=== PATIENT | female | born 1985 | race Caucasian/White ===

== ENCOUNTER 2021-03-24 14:53 | Observation (INO) ==
[2021-03-24] MEDS ORDERED: ACETAMINOPHEN 325 MG TAB PO STA (17:07)
--- NOTE | 2021-03-24 17:09 | Emergency Department Note ---
History of Present Illness General Chief complaint: Head Injury, Minor Stated complaint: HEAD INJURY,MEDINA WENT ON HEAD(BACK) SYNCOPE,VOMIT Time Seen by Provider: 03/24/21 16:54 History of Present Illness Maximum Pain Intensity: 5 This is a 36-year-old female that presents to the emergency department via ambulance with complaints of "head injury, struck on back of head, syncope, vomiting". The patient notes that earlier today she was helping her unload a vehicle with items at [facility]. Patient states that her not realize that she was still unloading items and went to close the back shell of their vehicle. When he shut the door her head was underneath this and was struck by the door. She was knocked to the ground. She does not believe that she lost consciousness but notes that about 15 minutes after began vomiting. She vomited x2. She notes that when she was struck her vision became black and story like. She then notes that she had a syncopal event x2. No biting the tongue or bowel/bladder incontinence. She does have photophobia. She denies any chest pain or shortness of breath. No neck pain. She denies any pertinent past medical history, surgeries or allergies. Patient notes that she is from [place] and was driving her here to [facility]. Home Medications Medication Instructions Recorded Confirmed Type etonogestrel 68 mg subdermal 68 mg SUBDERMAL UD 03/24/21 03/24/21 History implant (Nexplanon) trazodone 50 mg tablet 50 mg PO HS 03/24/21 03/24/21 History Allergies Allergy/AdvReac Type Severity Reaction Status Date / Time No Known Allergies Allergy Unverified 03/24/21 20:30 Past Med/Surg History Medical History CTS (carpal tunnel syndrome) Surgical History H/O wisdom tooth extraction Social History Smoking Status: Never smoker Second Hand Exposure: No; Do You Dip or Chew Tobacco: No; Tobacco Cessation Education Requested by Patient: No Hx Alcohol Use: Yes Alcohol type: beer, wine and hard liquor Hx Substance Use: Yes Substance Use Type Other:: about once every 6 months Preferred Language: Brazilian Communication Ability: Effective Tools Developer Required: No Beliefs That Will Affect Care: None Current Living Situation: Spouse Current Living Situation Comment: lives with spouse Sanju but he is currently in rehab current occupational status: employed 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 Other Information That Helps Us Care for You: No Feels Safe at Home: Yes Safety Concerns: Feels Safe At This Time Assistive Devices: None Review of Systems A total of 10 systems reviewed and were otherwise negative Physical Exam Vital Signs Vital Signs - 24 hr 03/24/21 15:14 03/24/21 19:12 03/24/21 20:37 Temperature 35.9 C L 36.6 C Temperature Source Temporal Artery Scan Oral Pulse Rate 90 Pulse Rate [Finger] 56 L 65 Respiratory Rate 18 Respiratory Effort / Characteristics Non-Labored Respiratory Depth Normal Respiratory Pattern Regular Blood Pressure 113/79 Blood Pressure [Right Arm] 115/95 106/72 Blood Pressure Mean 90 Blood Pressure Mean [Right Arm] 101 83 Blood Pressure Position [Right Arm] Sitting Pulse Oximetry 100 100 99 Oxygen Delivery Method Room Air Room Air Room Air Sepsis Recent Fever Within 48 Hours No Sepsis New/Unexplained Change in Mental Status No Sepsis Action Taken by Nursing No Action Required VITAL SIGNS - Vital signs and nursing notes were reviewed. Stable and afebrile. GENERAL -36-year-old female appearing her stated age who is in no acute distress. Communicates well with provider and answers questions appropriately. SKIN - Without rashes. No meningeal or petechial rash. HEAD - NC/AT. EYES - PERRL with EOMI bilaterally. Sclera anicteric. EARS - No deformities of external structures noted on gross examination bilaterally. No pain elicited with palpation of the tragus bilaterally. External auditory canals without discharge or otorrhea. Tympanic membranes pearly oneal without retraction or bulging. No fluid or purulent material visualized behind the TM. Handle of malleus, umbo, cone of light, pars tensa/flaccid all easily visualized. No hemotympanum. NOSE - Midline and without cyanosis. No epistaxis or purulent drainage noted. Septum midline without deviation or septal hematoma noted. MOUTH/OROPHARYNX - Without perioral cyanosis. Buccal mucosa pink and moist and w ithout leukoplakia. Tongue midline with equal elevation of palate bilaterally. No tonsillar hypertrophy, erythema, or exudates noted. Good dentition noted. NECK - Neck with FROM. No C-spine tenderness. No nuchal rigidity. LUNGS - Chest wall symmetric without accessory muscle use, intercostals ret ractions, or central cyanosis. Normal vesicular breath sounds CTA B/L. No wheezes, rales, or rhonchi appreciated. CARDIAC - RRR with S1/S2. No murmur, rubs, or gallops appreciated. EXTREMITIES - No clubbing or peripheral cyanosis. +5/5 strength noted in UE/LE bilaterally. NEUROLOGIC - Cranial nerves II through XII grossly intact. Sensory intact to light touch throughout. PSYCH - A&Ox3 and cooperates fully with examiner. Pt is very pleasant and interacts well with examiner. Course Administered Medications Acetaminophen (Acetaminophen 325 Mg Tab) 650 mg PO Q4H PRN PRN Reason: Pain or Fever Stop: 04/23/21 23:54 Last Admin: 03/25/21 00:18 Dose: 650 mg Documented by: [id number] Discontinued Medications Acetaminophen (Acetaminophen 325 Mg Tab) 650 mg PO NOW STA Stop: 03/24/21 17:08 Last Admin: 03/24/21 17:27 Dose: 650 mg Documented by: [id number] Diphenhydramine HCl (Diphenhydramine 50 Mg/Ml Vial) 25 mg IV NOW STA Stop: 03/25/21 00:01 Last Admin: 03/25/21 00:18 Dose: 25 mg Documented by: [id number] Sodium Chloride (Nss 1000ml) 1,000 mls @ 999 mls/hr IV .Q1H1M KRISTIE Stop: 03/24/21 20:00 Last Infusion: 03/24/21 20:36 Dose: 0 mls/hr Documented by: [id number] Admin: 03/24/21 19:35 Dose: 999 mls/hr Documented by: [id number] Ibuprofen (Ibuprofen 600 Mg Tab) 600 mg PO NOW STA Stop: 03/24/21 18:42 Last Admin: 03/24/21 19:35 Dose: Not Given Documented by: [id number] Ketorolac Tromethamine (Ketorolac Tromethamine 15 Mg/Ml Vial) 15 mg IV NOW STA Stop: 03/24/21 18:58 Last Admin: 03/24/21 19:35 Dose: 15 mg Documented by: [id number] Ondansetron HCl (Ondansetron Inj 2 Mg/Ml 2 Ml Vial) 4 mg IV NOW STA Stop: 03/24/21 21:37 Last Admin: 03/24/21 22:49 Dose: 4 mg Documented by: [id number] Medical Decision Making Laboratory Data Result diagrams: 03/24/21 19:28 03/24/21 19:28 Lab Results 03/24/21 03/24/21 03/24/21 Range/Units 19:28 19:28 19:28 WBC 8.66 (4.8-10.8) K/uL RBC 4.65 (4.2-5.4) M/uL Hgb 14.5 (12.0-16.0) g/dL Hct 42.8 (37-47) % MCV 92.0 (80-100) fL MCH 31.2 (25-34) pg MCHC 33.9 (32-36) g/dL RDW Std Deviation 40.3 (36.4-46.3) fL RDW Coeff of Glenn 12.0 (11.5-14.5) % Plt Count 279 (130-400) K/uL MPV 9.3 (7.4-10.4) fL Immature Gran % (Auto) 0.2 % Neut % (Auto) 46.6 % Lymph % (Auto) 41.0 % [place]icking % (Auto) 6.9 % Eos % (Auto) 5.1 % Baso % (Auto) 0.2 % Neut # (Auto) 4.03 (1.4-6.5) K/uL Lymph # (Auto) 3.55 H (1.2-3.4) K/uL [place]icking # (Auto) 0.60 H (0.11-0.59) K/uL Eos # (Auto) 0.44 (0-0.5) K/uL Baso # (Auto) 0.02 (0-0.2) K/uL Immature Gran # (Auto) 0.02 (0.00-0.02) K/uL Sodium 139 (136-145) mmol/L Potassium 3.9 (3.5-5.1) mmol/L Chloride 108 H (98-107) mmol/L Carbon Dioxide 27 (21-32) mmol/L Anion Gap 3.0 (3-11) BUN 8 (7-18) mg/dl Creatinine 0.75 (0.6-1.2) mg/dl Est Cr Clr Drug Dosing Not Reportable Est GFR ( Amer) 120.5 ml/min Est GFR (Non-Af Amer) 104.0 ml/min BUN/Creatinine Ratio 10.2 (10-20) Glucose 90 (70-99) mg/dl Calcium 8.9 (8.5-10.1) mg/dl Total Bilirubin 0.4 (0.2-1) mg/dl AST 12 L (15-37) U/L ALT 13 (12-78) U/L Alkaline Phosphatase 56 (45-117) U/L Total Protein 7.9 (6.4-8.2) gm/dl Albumin 4.2 (3.4-5.0) gm/dl Globulin 3.7 (2.5-4.0) gm/dl Albumin/Globulin Ratio 1.1 (0.9-2) HCG, Qual Negative (Negative) COVID-19 Eval Order SARS-CoV-2 (PCR) (Negative) 03/24/21 03/24/21 Range/Units 20:33 20:33 WBC (4.8-10.8) K/uL RBC (4.2-5.4) M/uL Hgb (12.0-16.0) g/dL Hct (37-47) % MCV (80-100) fL MCH (25-34) pg MCHC (32-36) g/dL RDW Std Deviation (36.4-46.3) fL RDW Coeff of Glenn (11.5-14.5) % Plt Count (130-400) K/uL MPV (7.4-10.4) fL Immature Gran % (Auto) % Neut % (Auto) % Lymph % (Auto) % Licking % (Auto) % Eos % (Auto) % Baso % (Auto) % Neut # (Auto) (1.4-6.5) K/uL Lymph # (Auto) (1.2-3.4) K/uL Licking # (Auto) (0.11-0.59) K/uL Eos # (Auto) (0-0.5) K/uL Baso # (Auto) (0-0.2) K/uL Immature Gran # (Auto) (0.00-0.02) K/uL Sodium (136-145) mmol/L Potassium (3.5-5.1) mmol/L Chloride (98-107) mmol/L Carbon Dioxide (21-32) mmol/L Anion Gap (3-11) BUN (7-18) mg/dl Creatinine (0.6-1.2) mg/dl Est Cr Clr Drug Dosing Est GFR ( Amer) ml/min Est GFR (Non-Af Amer) ml/min BUN/Creatinine Ratio (10-20) Glucose (70-99) mg/dl Calcium (8.5-10.1) mg/dl Total Bilirubin (0.2-1) mg/dl AST (15-37) U/L ALT (12-78) U/L Alkaline Phosphatase (45-117) U/L Total Protein (6.4-8.2) gm/dl Albumin (3.4-5.0) gm/dl Globulin (2.5-4.0) gm/dl Albumin/Globulin Ratio (0.9-2) HCG, Qual (Negative) COVID-19 Eval Order Covid19 at [facility] SARS-CoV-2 (PCR) NEGATIVE (Negative) Imaging Data Radiologist's Impression: Cervical Spine CT 03/24/21 17:06 CT SCAN OF THE CERVICAL SPINE CLINICAL HISTORY: Possible syncope. Head injury. COMPARISON STUDY: No priors. TECHNIQUE: CT scan of the cervical spine is performed from the skull base to the upper thoracic spine. Images are reviewed in the axial, sagittal, and coronal planes. IV contrast was not administered for this examination. A dose lowering technique was utilized adhering to the principles of ALARA. CT DOSE: 841.04 mGy.cm FINDINGS: Skeletal structures: The skeletal structures are well mineralized. There is no evidence of fracture or subluxation involving the cervical spine. Vertebral body height and alignment are maintained. There is straightening of the cervical lordosis. The odontoid process and lateral masses are intact. The atlantoaxial articulation is preserved. The spinous processes appear intact. Intervertebral discs: The disc spaces are well maintained. Central canal: Widely patent. Soft tissues: The prevertebral and paraspinous soft tissues are within normal limits. The 7 mm low-attenuation nodule is noted in the left lobe of the thyroid gland. Calvarium: The visualized calvarium at the skull base appears intact. Brain parenchyma: Partially visualized brain parenchyma at the skull base is within normal limits. Sinuses and mastoids: The visualized paranasal sinuses are clear. The mastoid air cells are well pneumatized. Lung apices: Clear as visualized. IMPRESSION: 1. There is no evidence of fracture or subluxation involving the cervical spine. 2. Left lobe thyroid nodule. Follow-up with a nonemergent thyroid ultrasound is recommended for further assessment. ACT 112: Negative or not required by law. Electronically signed by: Guanaco Stevens M.D. 03/24/2021 5:[address] 03/24/21 17:06 CT SCAN OF THE BRAIN WITHOUT IV CONTRAST CLINICAL HISTORY: Head injury. COMPARISON STUDY: No priors TECHNIQUE: Unenhanced axial CT scan of the brain is performed from the vertex to the skull base. A dose lowering technique was utilized adhering to the principles of ALARA. FINDINGS: Brain parenchyma: The brain parenchyma is normal in appearance. There is no hemorrhage, mass effect, or evidence of acute territorial ischemia by CT criteria. Oneal-white matter differentiation is preserved. No extra-axial fluid collection is seen. Ventricles, sulci, cisterns: Normal in configuration. Intracranial vasculature: The visualized intracranial vasculature at the skull base is normal in appearance. Calvarium: There is no depressed calvarial fracture. Sinuses and mastoids: The visualized paranasal sinuses are clear. The mastoid air cells are well pneumatized. Orbits: The bony orbits are grossly intact. IMPRESSION: No acute intracranial abnormality. ACT 112: Negative or not required by law. Electronically signed by: Guanaco Stevens M.D. 03/24/2021 5:43 PM MDM Narrative Patient was seen and evaluated as above in room A03. Review was performed of nursing notes and vital signs. No previous visits for review. After obtaining a thorough history and physical examination the above work up was performed. Patient presents to us today via EMS status post head injury. Although there was no reported initial loss of consciousness she did have vomiting following this and two periods of unresponsiveness/syncope. On arrival she is nontoxic on exam and yield stable vital signs. Clinically she is photophobic and is experiencing a headache. No deficits on exam. It is important to note that prior to the head injury the patient felt fine. Options of care were discussed with the patient. CT scan of the head and C- spine were obtained. Negative for traumatic process. I suspect concussion. Patient does have a thyroid nodule which will require follow-up. She was educated upon this. She is to call her PCP on Saturday to arrange follow-up. Patient had worsening of her headache despite p.o. acetaminophen. IV access was established. She was given IV fluids, IV Toradol. The patient at this time should not drive home noting her recent head injury and she lives in [place]. No family in the area at this current time. Options were discussed with the patient and through shared decision making at this time do believe that with her head injury in the setting of syncope/unresponsiveness x2 with associated vomiting that inpatient management is warranted. Case discussed with the hospitalist. Please refer to further documentation regarding her stay. Laboratory studies were obtained reveal no emergent process hCG negative. Covid negative. GCS: 15 In the evaluation and treatment of this patient, the following differential d iagnoses were considered: Concussion, Contrecoup Injury, Brain Tumor, Depression, Encephalitis, Hypothyroidism, Meningitis, CVA, TIA, Migraine, Cluster Headache, Intracranial Abnormality, Intracranial Hemorrhage, Subdural Hematoma, Subarachnoid Hemorrhage, Hydrocephalus, among others. Impression & Plan Concussion without loss of consciousness, Vomiting Discharge Plan Visit Data Chief Complaint: Head Injury, Minor Stated Complaint: HEAD INJURY,MEDINA WENT ON HEAD(BACK) SYNCOPE,VOMIT ED Provider: Alcides Judge ED Midlevel Provider: Deepak Worthington Discharge Problem: Concussion without loss of consciousness, Vomiting Patient Disposition: Admitted As Inpatient Condition: Good Discharge Instructions Interventions: ED Discharge Assessment Last Done: 03/24/21 23:25
--- NOTE | 2021-03-24 17:44 | CT Scan Report ---
CT SCAN OF THE BRAIN WITHOUT IV CONTRAST CLINICAL HISTORY: Head injury. COMPARISON STUDY: No priors TECHNIQUE: Unenhanced axial CT scan of the brain is performed from the vertex to the skull base. A d ose lowering technique was utilized adhering to the principles of ALARA. FINDINGS: Brain parenchyma: The brain parenchyma is normal in appearance. There is no hemorrhage, mass effect, or evidence of acute territorial ischemia by CT criteria. Oneal-white matter differentiation is preser sandhya. No extra-axial fluid collection is seen. Ventricles, sulci, cisterns: Normal in configuration. Intracranial vasculature: The visualized intracranial vasculature at the skull base is normal in appe arance. Calvarium: There is no depressed calvarial fracture. Sinuses and mastoids: The visualized paranasal sinuses are clear. The mastoid air cells are well pneu matized. Orbits: The bony orbits are grossly intact. IMPRESSION: No acute intracranial abnormality. ACT 112: Negative or not required by law. Electronically signed by: Guanaco Stevens M.D. 03/24/2021 5:43 PM
--- NOTE | 2021-03-24 17:49 | CT Scan Report ---
CT SCAN OF THE CERVICAL SPINE CLINICAL HISTORY: Possible syncope. Head injury. COMPARISON STUDY: No priors. TECHNIQUE: CT scan of the cervical spine is performed from the skull base to the upper thoracic spine . Images are reviewed in the axial, sagittal, and coronal planes. IV contrast was not administered fo r this examination. A dose lowering technique was utilized adhering to the principles of ALARA. CT DOSE: 841.04 mGy.cm FINDINGS: Skeletal structures: The skeletal structures are well mineralized. There is no evidence of fracture o r subluxation involving the cervical spine. Vertebral body height and alignment are maintained. There is straightening of the cervical lordosis. The odontoid process and lateral masses are intact. The a tlantoaxial articulation is preserved. The spinous processes appear intact. Intervertebral discs: The disc spaces are well maintained. Central canal: Widely patent. Soft tissues: The prevertebral and paraspinous soft tissues are within normal limits. The 7 mm low-at tenuation nodule is noted in the left lobe of the thyroid gland. Calvarium: The visualized calvarium at the skull base appears intact. Brain parenchyma: Partially visualized brain parenchyma at the skull base is within normal limits. Sinuses and mastoids: The visualized paranasal sinuses are clear. The mastoid air cells are well pneu matized. Lung apices: Clear as visualized. IMPRESSION: 1. There is no evidence of fracture or subluxation involving the cervical spine. 2. Left lobe thyroid nodule. Follow-up with a nonemergent thyroid ultrasound is recommended for [facility] assessment. ACT 112: Negative or not required by law. Electronically signed by: Guanaco Stevens M.D. 03/24/2021 5:48 PM
[2021-03-24] MEDS ORDERED: IBUPROFEN 600 MG TAB PO STA (18:41)
[2021-03-24] MEDS ORDERED: KETOROLAC TROMETHAMINE 15 MG/ML VIAL IV STA (18:57)
[2021-03-24] MEDS ORDERED: SODIUM CHLORIDE 0.9% 1000ML 1,000 ML IV SCH (19:00)
[2021-03-24 19:40] LABS: Basophils # (auto) 0.02 K/uL (0-0.2); Basophils % (auto) 0.2 %; Eosinophils # (auto) 0.44 K/uL (0-0.5); Eosinophils % (auto) 5.1 %; Hematocrit (blood only) 42.8 % (37-47); Hemoglobin 14.5 g/dL (12.0-16.0); Immature Granulocytes # (auto) 0.02 K/uL (0.00-0.02); Immature Granulocytes % (auto) 0.2 %; Lymphocytes # (auto) 3.55 K/uL (1.2-3.4); Mean Corpuscular Hemoglobin 31.2 pg (25-34); Mean Corpuscular Hgb Conc 33.9 g/dL (32-36); Mean Platelet Volume 9.3 fL (7.4-10.4); Monocytes % (auto) 6.9 %; Neutrophils # (auto) 4.03 K/uL (1.4-6.5); Neutrophils % (auto) 46.6 %; Platelet Count 279 K/uL (130-400); RDW Standard Deviation 40.3 fL (36.4-46.3); Red Blood Count 4.65 M/uL (4.2-5.4); White Blood Count 8.66 K/uL (4.8-10.8)
[2021-03-24 20:00] LABS: Alanine Aminotransferase 13 U/L (12-78); Albumin Level 4.2 gm/dl (3.4-5.0); Aspartate Aminotransferase 12 U/L (15-37); BUN Creatinine Ratio 10.2 (10-20); Blood Urea Nitrogen 8 mg/dl (7-18); Calcium 8.9 mg/dl (8.5-10.1); Carbon Dioxide 27 mmol/L (21-32); Chloride 108 mmol/L (98-107); Est GFR (African American) 120.5 ml/min; Glucose 90 mg/dl (70-99); Potassium 3.9 mmol/L (3.5-5.1); Sodium 139 mmol/L (136-145)
[2021-03-24 20:03] LABS: Albumin Globulin Ratio 1.1 (0.9-2); Alkaline Phosphatase 56 U/L (45-117); Bilirubin,Total 0.4 mg/dl (0.2-1); Globulin 3.7 gm/dl (2.5-4.0); Total Protein 7.9 gm/dl (6.4-8.2)
[2021-03-24 20:08] LABS: Pregnancy Test, Serum Negative (Negative)
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
[2021-03-24] MEDS ORDERED: ONDANSETRON INJ 2 MG/ML 2 ML VIAL IV STA (21:36)
[2021-03-24] MEDS ORDERED: ONDANSETRON INJ 2 MG/ML 2 ML VIAL IV PRN (23:55)
[2021-03-25] MEDS ORDERED: diphenhydrAMINE 50 MG/ML VIAL IV STA
[2021-03-25] MEDS: ACETAMINOPHEN 325 MG TAB PO PRN ×2 (00:18→09:22)
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
--- NOTE | 2021-03-25 21:23 | Billing Data ---
Date of Service March 25, 2021 Coding Level of Care Code INT OBSERVATION CARE 70M LVL 3
--- NOTE | 2021-03-26 06:56 | Electrocardiogram Report ---
Test Reason : Blood Pressure : / mmHG Vent. Rate : 059 BPM Atrial Rate : 059 BPM P-R Int : 158 ms QRS Dur : 086 ms QT Int : 406 ms P-R-T Axes : 020 085 072 degrees QTc Int : 401 ms Sinus bradycardia with sinus arrhythmia Otherwise normal ECG No previous ECGs available Confirmed by Javi Diggs ([id number]) on 03/26/2021 6:56:02 AM Referred By: REFERRED SELF Confirmed By:Javi Diggs
== END 2021-03-25 18:25 | disposition home or self-care (01) ==
LOC: 2W 14:53 → ED 14:53 → 2W 23:25 → 2N 03-25 00:50